=== PATIENT | female | born 1940 | race Caucasian/White ===

== ENCOUNTER → 2019-08-17 10:09 | Outpatient (BNVA) | payer MEDICARE, SELFPAY | PROVIDERS: Family Provider Nurse Practitioner Family; Visit Provider Nurse Practitioner Family | DX: H65.93 Unspecified nonsuppurative otitis media, bilateral (principal); R42 Dizziness and giddiness; E78.2 Mixed hyperlipidemia; E55.9 Vitamin D deficiency, unspecified; Z79.899 Other long term (current) drug therapy | CPT/HCPCS: 36415; 80053; 80061; 81001; 83036; 84443; 85025 ==

== ENCOUNTER 2019-11-20 20:00 | Emergency (ER) | payer MEDICARE, SELFPAY ==
[2019-11-20] VITALS (9 sets, daily range): BP systolic 121–167; BP diastolic 72–98; PULSE 68–72; RESP 16–20; TEMP 37; O2SAT 89–100; BMI 25.7
--- NOTE | 2019-11-20 20:31 | CTR_ITS ---
PROCEDURE INFORMATION: Exam: CT Cervical Spine Without Contrast Exam date and time: 11/20/2019 8:50 PM Age: 79 years old Clinical indication: Injury or trauma; Initial encounter; Blunt trauma; Patient HX: Fall while walking C/O neck upper back/chest pain TECHNIQUE: Imaging protocol: Computed tomography images of the cervical spine without contrast. Radiation optimization: All CT scans at this facility use at least one of these dose optimization techniques: automated exposure control; mA and/or kV adjustment per patient size (includes targeted exams where dose is matched to clinical indication); or iterative reconstruction. ADDITIONAL STUDY INFORMATION: Total DLP (mGy-cm): 337.6 COMPARISON: No relevant prior studies available. FINDINGS: There is mild multilevel malalignment, likely secondary to degenerative changes. Height of cervical bodies appears within normal limits. Straightening of the cervical spine may be due to muscle spasm. There are prominent multilevel degenerative changes in the cervical spine. There appears to be spinal canal narrowing. Further assessment cannot be made of the cervical spinal canal or its contents due to artifacts. No convincing acute fracure is demonstrated when allowing for the degenerative changes. Consider MRI of cervical spine for further assessment if clinically warranted, particularly for further assessment of the spinal canal and its contents, spinal cord, nerve roots, intervertebral disks, ligaments, other spinal soft tissues, bone edema, etc., if patient has no contraindication to MRI. There are prominent calcifications at each CCA bifurcation, consider further imaging to assess for carotid stenosis. CT/CT cervical spin wo con* [id number] IMPRESSION: No convincing acute fracture is demonstrated when allowing for prominent degenerative changes as discussed above. Radiation Dose CTDIVOL = (mGy): DLP = 337.6 (mGy-cm)
--- NOTE | 2019-11-20 20:31 | CTR_ITS ---
PROCEDURE INFORMATION: Exam: CT Head Without Contrast Exam date and time: 11/20/2019 8:32 PM Age: 79 years old Clinical indication: Injury or trauma; Initial encounter; Blunt trauma (contusions or hematomas); Without loss of consciousness; Patient HX: Fall while walking -loc TECHNIQUE: Imaging protocol: Computed tomography of the head without contrast. Radiation optimization: All CT scans at this facility use at least one of these dose optimization techniques: automated exposure control; mA and/or kV adjustment per patient size (includes targeted exams where dose is matched to clinical indication); or iterative reconstruction. ADDITIONAL STUDY INFORMATION: Total DLP (mGy-cm): 849.12 COMPARISON: [place] [id number] 10/24/2017 8:37 AM FINDINGS: There are some artifacts from patient motion. There is moderate low density in the bilateral periventricular white matter which may represent chronic small vessel ischemic disease in the appropriate clinical setting. The possibility of superimposed acute infarctions cannot be excluded; consider MRI brain (including diffusion images) for further assessment if clinically warranted and if patient has no contraindication to MRI. There are prominent intracranial arterial calcifications. There is mild cerebral cortical volume loss. Ventricles do not appear significantly dilated. No definite depressed calvarial fracture is demonstrated. Visualized paranasal sinuses and mastoid air cells demonstrate no significant opacification. CT/CT head wo con* [id number] IMPRESSION: Probable chronic ischemic changes as discussed above. Radiation Dose CTDIVOL = (mGy): DLP = 849.12 (mGy-cm)
--- NOTE | 2019-11-20 20:31 | CTR_ITS ---
PROCEDURE INFORMATION: Exam: CT Chest Without Contrast Exam date and time: 11/20/2019 8:50 PM Age: 79 years old Clinical indication: Injury or trauma; Initial encounter; Blunt trauma (contusions or hematomas); Prior surgery; Surgery date: 6+ months; Surgery type: Pacer; Patient HX: Fall while walking C/O neck upper back/chest pain TECHNIQUE: Imaging protocol: Computed tomography of the chest without contrast. Radiation optimization: All CT scans at this facility use at least one of these dose optimization techniques: automated exposure control; mA and/or kV adjustment per patient size (includes targeted exams where dose is matched to clinical indication); or iterative reconstruction. COMPARISON: No relevant prior studies available. RADIATION DOSE METRICS: Total DLP (mGy-cm): 423.2 FINDINGS: Tubes, catheters and devices: Dual lead left subclavian pacemaker. Lungs: Centrilobular emphysema. Calcified granulomas with scarring in the right upper lobe. Atelectasis and/or fibrosis in the bilateral lower lobes and lingula. Pleural space: Unremarkable. No pneumothorax. No pleural effusion. Heart: Coronary artery calcifications. Aorta: Unremarkable. No aortic aneurysm. Lymph nodes: Mediastinal lymph nodes measuring up to 9 mm short axis are most likely reactive. Calcified right hilar lymph nodes. Liver: Calcified granulomas in the liver. Spleen: Calcified granulomas in the spleen. Bones/joints: Old right lateral rib fractures. Mild anterior wedging of T1. Oblique displaced fracture through the superior body of the sternum, best appreciated on the sagittal reformats. Small amount of hemorrhage in the anterior mediastinum, adjacent to the sternum fracture. Mild scoliosis. Soft tissues: Unremarkable. CT/CT chest con [id number] IMPRESSION: 1. Displaced sternum fracture with a small amount of adjacent hemorrhage. 2. Mild anterior wedge compression fracture of T1 is age indeterminate but could be acute. Radiation Dose CTDIVOL = (mGy): DLP = 423.2 (mGy-cm)
[2019-11-20] MEDS: HYDROmorphone 1 mg/mL INJ 1 mL 0.5 MG IVP ×2 (20:40→23:58)
--- NOTE | 2019-11-20 21:43 | W.ED.FALL ---
HPI - Fall General: Chief Complaint: Fall Stated Complaint: FALL Time Seen by Provider: 11/20/19 20:10 History of Present Illness: HPI Narrative: 79-year-old female, with a history of dementia, who tripped over a toolbox on the porch, falling. She complains of headache, neck pain, and right sided upper chest pain. By family's report, she did not lose consciousness. MD complaint: fall Onset (ago): minute(s) Fall from: standing Fall witnessed: yes, by family Place fall occurred: home Loss of consciousness: None Prolonged down time: no Symptoms prior to fall: none Context: tripped/slipped Location of injury: head, neck and chest Review of Systems General: Reports: ROS unobtainable due to medical condition (Patient has dementia, and is therefore a poor historian) PFS ED PFSH: Medical History (Updated 11/20/19 @ 23:39 by Law Odom DO) Alzheimer disease Anticoagulated Arteriosclerosis of both carotid arteries ASHD (arteriosclerotic heart disease) Chronic episodic atrial fibrillation Chronic idiopathic constipation COPD (chronic obstructive pulmonary disease) Dizziness Dysphagia Essential hypertension Fluid level behind tympanic membrane of both ears H/O adenomatous polyp of colon Mixed hyperlipidemia Pacemaker SVT (supraventricular tachycardia) Vitamin D deficiency Family History Other CAD (coronary artery disease) Cancer Diabetes Hypertension Social History Smoking and tobacco status: current every day smoker Quit status (tobacco): not considering quitting Second hand smoke exposure: Yes Smoking risk assessment/counseling performed?: No Alcohol intake: never Desire information about alcohol rehabilitation?: Yes Counseling given: Yes Desire information about substance/drug rehabilitation?: No Counseling given: No Physical Exam Const: GENERAL APPEARANCE: well developed ORIENTATION/CONSCIOUSNESS: Yes oriented to person, Yes oriented to place and Yes oriented to time HENMT: COMMON NORMALS: normocephalic, external ears normal and Normal external nose present HEAD & SCALP: normocephalic FACE & SINUS: normal facial exam NOSE: Normal external nose present and No nasal discharge present EXTERNAL EAR: Yes external ears normal MOUTH: tongue normal THROAT: posterior oropharynx normal; no peritonsillar mass Eye: COMMON NORMALS: Equal, round and reactive pupils present, EOMs intact bilaterally and conjunctivae normal EYELID: eyelids normal CONJUNCTIVA: Yes conjunctivae normal PUPIL: Yes Equal, round and reactive pupils present Neck/C-Spine: GENERAL: No tracheal deviation CERVICAL SPINE: Yes normal cervical lordosis and Yes Cervical spine tenderness Chest: COMMONS NORMALS: normal inspection of the chest CHEST: Yes tenderness Resp: COMMON NORMALS: clear to auscultation bilaterally EFFORT & INSPECTION: No tachypneic, No respiratory distress, No retractions, No uses accessory muscles and No tracheal deviation AUSCULTATION: clear to auscultation bilaterally, no rhonchi, no wheezes and lung sounds not diminished Cardio: COMMON NORMALS: regular rate and regular rhythm RATE: regular rate RHYTHM: regular rhythm HEART SOUNDS: no murmurs PERIPHERAL PULSES: radial pulses present GI: INSPECTION: No abdominal distension AUSCULTATION: No Hyperactive bowel sounds present and No Hypoactive bowel sounds present PALPATION: No Guarding due to palpation present (GI) and No Rigid due to palpation PERCUSSION: no dullness to percussion and no tympanic to percussion Neuro: SENSORIUM/ORIENTATION: Yes oriented to person, Yes oriented to place and Yes oriented to time Psych: COMMON NORMALS: mental status grossly normal Skin: COMMON NORMALS: no rashes or lesions noted GENERAL SKIN EXAM: no rashes or lesions noted Course Vital Signs: Vital signs: Vital Signs Temperature 98.6 F 11/20/19 20:05 Pulse Rate 72 11/20/19 23:09 Respiratory Rate 18 11/21/19 01:55 Blood Pressure 123/74 11/21/19 01:55 Pulse Oximetry 89 L 11/21/19 00:00 MDM - Fall MDM Narrative: Medical decision making narrative: 79-year-old female status post standing level fall. She complained of headache neck ache and upper chest pain. She has CTs that are negative of the head and cervical spine. CT of the chest shows an isolated mildly displaced sternal fracture. There is no associated pulmonary contusion. There is a small amount of hemorrhage. Her oxygen saturations have been okay. She has not had any respiratory distress. She has some splinting, and she was coached not to do this. She will go home on incentive spirometry to return for any worsening shortness of breath, etc. Discharge Plan Discharge Patient Disposition: Home Clinical Impression: Concussion without loss of consciousness Qualifiers: Encounter type: initial encounter Qualified Code(s): S06.0X0A - Concussion without loss of consciousness, initial encounter Closed fracture of sternum Qualifiers: Encounter type: initial encounter Sternal location: body of sternum Qualified Code(s): S22.22XA - Fracture of body of sternum, initial encounter for closed fracture Condition: Stable Prescriptions: New Ethel 5-325 mg tablet 1 tab PO Q6H PRN (Reason: pain) Qty: 7 RF: 0 No Action loratadine [Claritin] 10 mg tablet 10 mg PO DAILY RF: 0 isosorbide mononitrate 30 mg tablet extended release 24 hr 30 mg PO DAILY RF: 0 memantine [Namenda] 10 mg tablet 10 mg PO BID RF: 0 sennosides-docusate sodium [Lax Stool Softener With Senna] 8.6-50 mg tablet 1 tab-cap PO BID RF: 0 polyethylene glycol 3350 [Miralax] 17 gram/dose powder 17 gm PO DAILY RF: 0 Linzess 145 mcg capsule 145 mcg PO DAILY 30 Days Qty: 30 RF: 0 fluticasone propionate [Flonase Allergy Relief] 50 mcg/actuation spray,suspension 1 spray INTRANASAL DAILY PRN (Reason: allergy symptoms) 30 Days Qty: 16 RF: 2 flecainide 100 mg tablet 100 mg PO Q12H Qty: 180 RF: 1 Pradaxa 150 mg capsule 150 mg PO BID Qty: 180 RF: 1 citalopram 40 mg tablet 40 mg PO QDAY Qty: 30 RF: 5 pantoprazole 40 mg tablet,delayed release (DR/EC) 40 mg PO DAILY Qty: 30 RF: 2 simvastatin 40 mg tablet 40 mg PO DAILY Qty: 90 RF: 1 Discharge Orders: Discharge Order (Routine); Ordered 11/20/19 Ordered By: Law Odom Referrals: DIPAK Johnson, [employer] REPAIR TECHNICIAN [Primary Care Provider] - 4-7 days Discharge Diet: Advance as tolerated Discharge Activity: Increase activity as tolerated Patient Instructions: Concussion (ED) Activity Restrictions/Additional Instructions: Return for worsening pain despite treatment, shortness of breath, worsening mental status, vomiting, other concerning symptoms. Sternal fractures are high-energy fractures, and you are at risk to develop lung bruises which can make her short of breath. Watch closely for this. Discharge Date/Time: 11/21/19 01:57 Coding Level of Care Code ED Computer Bookkeeper for Chg Fwd Exam Comprehensive
[2019-11-21] VITALS: BP 111/76; RESP 20; O2SAT 89
[2019-11-21] MEDS: HYDROcodone-acetaminophen 5-325 mg Tablet 2 TAB PO (01:40)
[2019-11-21 01:55] VITALS: BP 123/74; RESP 18
== END 2019-11-21 01:57 | disposition home or self-care (01) ==
PROVIDERS: Emergency Provider Emergency Medicine; PCP Nurse Practitioner Family
DX: S06.0X0A Concussion without loss of consciousness, initial encounter (principal); S22.22XA Fracture of body of sternum, initial encounter for closed fracture; J44.9 Chronic obstructive pulmonary disease, unspecified; I10 Essential (primary) hypertension; E78.2 Mixed hyperlipidemia; Z95.0 Presence of cardiac pacemaker; F17.210 Nicotine dependence, cigarettes, uncomplicated; F03.90 Unspecified dementia, unspecified severity, without behavioral disturbance, psychotic disturbance, mood disturbance, and anxiety; W18.09XA Striking against other object with subsequent fall, initial encounter
CPT/HCPCS: 12345; 70450; 71250; 72125; 96374; 96376; 99283; J1170

== ENCOUNTER 2021-04-05 13:31 | Inpatient (IN) | payer MEDICARE, SELFPAY ==
[2021-04-05] VITALS (7 sets, daily range): BP systolic 99–170; BP diastolic 66–90; PULSE 60–82; RESP 16–20; TEMP 36.4–36.8; O2SAT 91–96; BMI 22.4
--- NOTE | 2021-04-05 14:27 | XR_ITS ---
WS: [id number] XR chest 1V portable [id number] REASON FOR EXAM: sob FINDINGS: Chest is relatively unchanged compared to previous examination of 08/05/2018. Tortuous ectatic thoracic aorta with calcification. Normal heart size. Cardiac device in place over the left chest with transvenous left subclavian vein leads to the right atrium and right ventricular apex. Eventration of the right hemidiaphragm. Calcified granulomatous disease in both thoraces. No acute pulmonary parenchymal or pleural abnormality. Mild degenerative changes in the mid and lower thoracic spine and both shoulder joints. XR/XR chest 1V portable [id number] IMPRESSION: No acute chest abnormality.
--- NOTE | 2021-04-05 14:28 | W.ED.GENADLT ---
HPI - General Adult General: Chief complaint: General Medical Stated complaint: Possible Covid, Alzheimers Time Seen by Provider: 04/05/21 14:28 Limitations: altered mental status History of Present Illness: Ms. Bustillo is an 80-year-old lady with significant past medical history of dementia who presents the emergency department with cough and altered mental status. She typically lives with her daughter at home and even though she has dementia is communicative and ambulatory. She developed mild shortness of breath cough over the past week or so and over the past 4 days has had worsening of mental status. Intensity of symptoms is moderate to severe. She has had generalized weakness without focality. Course has been worsening. No other specific changes in health, trauma, exacerbating, or relieving factors identified. Onset (ago): day(s) Severity: moderate Associated symptoms: Reports cough, dyspnea and weakness Review of Systems General: Reports: ROS unobtainable due to mental status Resp: Reports: dyspnea PFSH ED PFSH: Medical History (Updated 04/07/21 @ 00:01 by ) Alzheimer disease Anticoagulated Arteriosclerosis of both carotid arteries ASHD (arteriosclerotic heart disease) Carotid stenosis Chronic episodic atrial fibrillation Chronic idiopathic constipation COPD (chronic obstructive pulmonary disease) Dizziness Dysphagia Essential hypertension Fluid level behind tympanic membrane of both ears H/O adenomatous polyp of colon Mixed hyperlipidemia Pacemaker SVT (supraventricular tachycardia) Vitamin D deficiency Surgical History (Updated 04/05/21 @ 18:19 by Reggie Cortez MD) Hx of cataract extraction Family History Mother Cancer Brother Cancer Sister Cancer Dementia Other Hypertension Denies family history of Diabetes CAD (coronary artery disease) Clotting disorder Chronic kidney disease (CKD) Suicide Anesthesia complication Bleeding disorder Lung disease Stroke Social History Smoking and tobacco status: current every day smoker Quit status (tobacco): not considering quitting Second hand smoke exposure: Yes Smoking risk assessment/counseling performed?: No Alcohol intake: never Desire information about alcohol rehabilitation?: Yes Counseling given: Yes Desire information about substance/drug rehabilitation?: No Counseling given: No Physical Exam Const: GENERAL APPEARANCE: well developed and ill appearing OTHER: Somnolent HENMT: COMMON NORMALS: normocephalic and atraumatic HEAD & SCALP: normocephalic and atraumatic THROAT: posterior oropharynx normal (Dry mucous membranes) Eye: COMMON NORMALS: conjunctivae normal CONJUNCTIVA: Yes conjunctivae normal SCLERA: sclerae normal Neck/C-Spine: COMMON NORMALS: supple GENERAL: Yes trachea midline Resp: COMMON NORMALS: normal respiratory effort EFFORT & INSPECTION: Yes able to speak in complete sentences AUSCULTATION: rhonchi lower bilaterally and diminished lung sounds Cardio: COMMON NORMALS: regular rate and regular rhythm RATE: regular rate RHYTHM: regular rhythm GI: COMMON NORMALS: Soft to palpation PALPATION: Yes Soft to palpation, Yes Tenderness to palpation present (GI) (Mild generalized without peritonitis), No Guarding due to palpation present (GI) and No Rigid due to palpation PERCUSSION: normal to percussion Extremity: GENERAL: Yes normal exam except as noted and No edema Neuro: COMMON NORMALS: moves all extremities SENSORIUM/ORIENTATION: Yes Orientation impaired and Yes somnolent Skin: NARRATIVE SKIN EXAM: Scattered pinpoint violaceous markings around the groin area and axilla, not consistent with cellulitis or fungal, ?Petechial versus follicular in nature Course ED course: - Patient was seen and evaluated by me at bedside - Patient placed on cardiac monitors, IV access obtained - Initial evaluation notable for exam above, somewhat ill -Fluids ordered - Labs notable for no leukocytosis, mild thrombocytopenia of unclear etiology. Metabolic panel without acute electrolyte derangement to explain symptoms. ABG 7.47/41.6/52.5 at which point the patient was placed on supplemental oxygen. Covid positive - Imaging notable for negative head CT for acute pathology. No acute finding on chest x-ray. - Upon serial reexamination after treatment the patient was similar. - Based on patient history, evaluation, labs, and imaging as interpreted the most likely cause of the patient's condition is COVID-19 with hypoxemia and generalized symptoms. - The results of ED evaluation were discussed with the patient's daughter extensively including possible disposition options. At baseline the patient does have dementia however is able to ambulate and daughter reports good quality of life. Therefore plan is for admission due to requirement for level of care not available if discharged to prevent significant worsening/deterioration. -Hospitalist service contacted and agreed to admit the patient - Patient was admitted without further deterioration or significant events. Note: Click bubbles or prepopulated portillo in note writing are used for assistance with data collection and billing and are inherently more limited than narrative and other text portions of this note. Please use narrative for additional clinical history and defer to narrative/free test for any case of contradictory information. If information appears in only free text or click bubble it should be considered present or absent as reported. Please contact note senior medical writer for clarifications of clinical information or contradictory information. MDM is a brief summary, contradictory or erroneous seeming information should be clarified and full note should be reviewed. Vital Signs: Vital signs: Vital Signs Temperature 98.7 F 04/06/21 19:01 Pulse Rate 67 04/06/21 19:01 Respiratory Rate 18 04/06/21 19:01 Blood Pressure 122/68 04/06/21 19:01 Pulse Oximetry 94 04/06/21 19:01 MDM - General Adult Medical Decision Making 81-year-old lady with dementia though typically ambulatory and able to care for self with assistance residing with family presenting with cough, shortness of breath, weakness and somnolence. Patient found to be Covid positive. Will admit for further management given new oxygen requirement and severe decline in functional status likely secondary to Covid. Medical Records I reviewed the patient's medical records. Lab Data I reviewed the patient's lab results. : 04/06/21 03:00 04/06/21 03:[address] 04/05/21 14:50 IMPRESSION: 1. No acute intracranial hemorrhage or edema. 2. Mild atrophy and chronic microvascular ischemic disease. No acute findings. Chest X-Ray 04/06/21 18:15 IMPRESSION: Mild patchy opacity at the lateral left base may reflect atelectasis or developing infiltrate. Laboratory Results WBC 5.3 10^3/uL (4.0-10.0) 04/05/21 14:50 RBC 4.17 10^6/uL (4.1-5.3) 04/05/21 14:50 Hgb 12.5 g/dL (11.5-15.3) 04/05/21 14:50 Hct 38.1 % (37.0-47.0) 04/05/21 14:50 MCV 91.4 fl (81-99) 04/05/21 14:50 MCH 30.0 pg (28.0-34.0) 04/05/21 14:50 MCHC 32.8 g/dL (30.0-36.0) 04/05/21 14:50 RDW 12.9 % (12.1-15.1) 04/05/21 14:50 Plt Count 118 10^3/cmm (130-400) L 04/05/21 14:50 MPV 11.2 fL (7.4-10.4) H 04/05/21 14:50 Neut % (Auto) 51.9 % 04/05/21 14:50 Lymph % (Auto) 39.0 % 04/05/21 14:50 Coffey % (Auto) 8.1 % 04/05/21 14:50 Eos % (Auto) 0.4 % 04/05/21 14:50 Baso % (Auto) 0.2 % 04/05/21 14:50 Neut # (Auto) 2.76 10^3/uL (1.8-7.7) 04/05/21 14:50 Lymph # (Auto) 2.1 10^3/uL (0.8-4.8) 04/05/21 14:50 Coffey # (Auto) 0.4 10^3/uL (0.2-0.9) 04/05/21 14:50 Eos # (Auto) 0.0 10^3/uL (0.0-0.8) 04/05/21 14:50 Baso # (Auto) 0.0 10^3/uL (0.0-0.1) 04/05/21 14:50 Nucleated RBC % (auto) 0 % 04/05/21 14:50 Nucleated RBCs # 0.0 /100WBC 04/05/21 14:50 D-Dimer 11.07 ug/mIFEU (0-0.59) H 04/05/21 18:13 Sodium 139 mmol/L (136-145) 04/05/21 14:50 Potassium 3.8 mmol/L (3.5-5.1) 04/05/21 14:50 Chloride 102 mmol/L (98-107) 04/05/21 14:50 Carbon Dioxide 27 mmol/L (22-29) 04/05/21 14:50 Anion Gap 13.8 (5-19) 04/05/21 14:50 BUN 19 mg/dL (8-23) 04/05/21 14:50 Creatinine 0.6 mg/dL (0.5-0.9) 04/05/21 14:50 GFR Calculation Not Reportable 04/05/21 14:50 Glucose 97 mg/dL (65-115) 04/05/21 14:50 POC Glucose 103 mg/dL (70-110) 04/05/21 15:37 Calculated Osmolality 290 mOsm/kg (285-295) 04/05/21 14:50 Calcium 9.2 mg/dL (8.5-10.5) 04/05/21 14:50 Iron 34 ug/dL (37-145) L 04/05/21 14:50 TIBC 226 mcg/dl 04/05/21 14:50 % Saturation 15.0 % (20-50) L 04/05/21 14:50 Unsat Iron Binding 192 ug/dL (112-347) 04/05/21 14:50 Total Bilirubin 0.5 mg/dL (0.15-1.2) 04/05/21 14:50 AST 22 U/L (0-32) 04/05/21 14:50 ALT 13 U/L (0-33) 04/05/21 14:50 Alkaline Phosphatase 75 IU/L (35-105) 04/05/21 14:50 Lactate Dehydrogenase 284 U/L (135-214) H 04/05/21 14:50 Creatine Kinase 86 U/L (26-192) 04/05/21 14:50 Troponin T Baseline 65 ng/L (0-10) H 04/05/21 14:50 Troponin T 120 Minute 56.62 ng/L (0-10) H 04/05/21 16:21 Delta Troponin T -8.38 ABS# (0-10) L 04/05/21 16:21 C-Reactive Protein 3.0 mg/L (0.0-4.9) 04/05/21 14:50 NT-Pro-B Natriuret Pep 267 pg/mL (0-450) 04/05/21 14:50 Total Protein 6.7 g/dL (6.6-8.7) 04/05/21 14:50 Albumin 3.6 g/dL (3.5-5.2) 04/05/21 14:50 Globulin 3.1 g/dL (1.3-4.6) 04/05/21 14:50 Procalcitonin 0.04 ng/mL (0-0.5) 04/05/21 14:50 TSH 1.99 uIU/mL (0.27-4.20) 04/05/21 14:50 Urine Color Yellow (Yellow) 04/05/21 15:44 Urine Appearance Clear (CLEAR) 04/05/21 15:44 Urine pH 5 (5-7) 04/05/21 15:44 Ur Specific [place] 1.015 (1.005-1.030) 04/05/21 15:44 Urine Protein Neg (Negative) 04/05/21 15:44 Urine Glucose (UA) Norm (Normal) 04/05/21 15:44 Urine Ketones Negative (Negative) 04/05/21 15:44 Urine Blood Neg (Negative) 04/05/21 15:44 Urine Nitrate Negative (Negative) 04/05/21 15:44 Urine Bilirubin Neg (Negative) 04/05/21 15:44 Urine Urobilinogen 1 mg/dL (Negative) H 04/05/21 15:44 Ur Leukocyte Esterase Negative (Negative) 04/05/21 15:44 Ur Random Sodium 50 mmol/L 04/05/21 15:44 Ur Random Potassium 57 mmol/L 04/05/21 15:44 Ur Random Chloride 57 mmol/L 04/05/21 15:44 Coronavirus 229E (PCR) Not detected (NOT DETECT) 04/05/21 15:40 Influenza Type A Ag Negative (Negative) 04/05/21 15:33 Influenza Type B Ag Negative (Negative) 04/05/21 15:33 SARS-CoV-2 (PCR) Detected (NOT DETECT) A 04/05/21 15:40 EKG Data EKG 1: I personally reviewed and interpreted this EKG as follows: EKG interpretation date: 04/05/21 EKG interpretation time: 15:39 Interpretation: Twelve-lead EKG shows a regular rhythm at a rate of 65. TX interval 139, QRS 94, QTc 376. Left axis deviation. Interpretation: Sinus rhythm. Computer generated interpretation: Head CT 04/05/21 14:50 IMPRESSION: 1. No acute intracranial hemorrhage or edema. 2. Mild atrophy and chronic microvascular ischemic disease. No acute findings. Chest X-Ray 04/06/21 18:15 IMPRESSION: Mild patchy opacity at the lateral left base may reflect atelectasis or developing infiltrate. Discharge Plan Discharge Patient Disposition: Admitted As Inpatient Admit Provider: Cindy Rain Clinical Impression: COVID-19, Hypoxemia Condition: Stable Discharge Diet: Usual diet Discharge Activity: Resume usual activity and Increase activity as tolerated Coding Level of Care Code ED Pipe Stem Repairer for Chg Fwd Exam Comprehensive
--- NOTE | 2021-04-05 14:30 | ECG_ITS ---
[facility] Test Date: 2021-04-05 Pat Name: Eli Bustillo Department: Room: Gender: Female Java Lead: : 1940 Requested By: Jace Rojas Order Number: [id number] Husam MD: ETHAN MOLINA Measurements Intervals [place] Rate: 65 P: 48 [place]: 139 QRS: -49 QRSD: 94 T: 87 QT: 364 QTc: 381 Interpretive Statements SINUS RHYTHM WITH SINUS ARRHYTHMIA PATTERN CONSISTENT WITH PULMONARY DISEASE LEFT ANTERIOR FASCICULAR BLOCK [QRS AXIS <= -45, QR IN I, RS IN II] NONSPECIFIC T-WAVE ABNORMALITY Compared to ECG 08/05/2018 15:36:05 T-wave abnormality now present Atrial-paced complex(es) or rhythm no longer present Prolonged QT interval no longer present Electronically Signed On 04-05-2021 21:47:30 AUTO CLEANER by ETHAN MOLINA [id number]
--- NOTE | 2021-04-05 14:50 | CT_ITS ---
WS: [id number] CT HEAD NONCONTRAST HISTORY: AMS TECHNIQUE: Contiguous axial imaging performed through the brain in 2.5 mm imaging. Bone and soft tiss ue windows. Sagittal and coronal reformats reviewed. All CT scans at [facility] use at least one of these dose optimization techniques: automated exposure control; mA and/or kV adjustment per pa tient size (includes targeted exams where dose is matched to clinical indication); or iterative recon struction. DLP: 1713.96 mGy.cm COMPARISON: 11/20/2019 No acute intracranial hemorrhage, midline shift or mass effect. Mild atrophy. Mild chronic microvascular ischemic type changes in the white matter. Ventricles: Ventricles and extra-axial spaces are prominent on the basis of central and peripheral a trophy. Paranasal sinuses: As visualized are clear. Mastoid air cells: Well pneumatized. Calvarium and scalp: Skull is intact with no soft tissue edema or swelling. Moderate calcifications in the intracranial carotid arteries. CT/CT head wo con* [id number] IMPRESSION: 1. No acute intracranial hemorrhage or edema. 2. Mild atrophy and chronic microvascular ischemic disease. No acute findings.
[2021-04-05 15:04] LABS: Basophils % 0.2 %; Eosinophils % 0.4 %; Hematocrit 38.1 % (37.0-47.0); Hemoglobin 12.5 g/dL (11.5-15.3); Lymphocytes # 2.1 10^3/uL (0.8-4.8); Mean Corpuscular HGB Conc 32.8 g/dL (30.0-36.0); Mean Corpuscular Volume 91.4 fl (81-99); Mean Platelet Volume 11.2 fL (7.4-10.4); Monocytes # 0.4 10^3/uL (0.2-0.9); Monocytes % 8.1 %; Neutrophils # 2.76 10^3/uL (1.8-7.7); Neutrophils % 51.9 %; Nucleated Red Blood Cells % 0 %; Platelet Count 118 10^3/cmm (130-400); Red Blood Count 4.17 10^6/uL (4.1-5.3); Red Cell Distribution Width 12.9 % (12.1-15.1); White Blood Count 5.3 10^3/uL (4.0-10.0)
[2021-04-05 15:28] LABS: Troponin(5th) Baseline 65 ng/L (0-10)
[2021-04-05 15:38] LABS: Alanine Aminotransferase 13 U/L (0-33); Albumin Level 3.6 g/dL (3.5-5.2); Alkaline Phosphatase 75 IU/L (35-105); Anion Gap 13.8 (5-19); Aspartate Amino Transferase 22 U/L (0-32); Blood Urea Nitrogen 19 mg/dL (8-23); Calcium 9.2 mg/dL (8.5-10.5); Carbon Dioxide 27 mmol/L (22-29); Chloride 102 mmol/L (98-107); Creatinine Clr Calc Pharmacy 50.2364; Globulin 3.1 g/dL (1.3-4.6); Glucose 97 mg/dL (65-115); Osmolality Calculated 290 mOsm/kg (285-295); Potassium 3.8 mmol/L (3.5-5.1); Procalcitonin 0.04 ng/mL (0-0.5); Sodium 139 mmol/L (136-145); Thyroid Stimulating Hormone 1.99 uIU/mL (0.27-4.20); Total Bilirubin 0.5 mg/dL (0.15-1.2); Total Protein 6.7 g/dL (6.6-8.7)
[2021-04-05 15:41] LABS: Glucose Point of Care 103 mg/dL (70-110)
[2021-04-05 16:00] LABS: Add Urine Microscopic? NO; Charge for UA Resulting for Rev
[2021-04-05 16:13] LABS: Bilirubin Urine Neg (Negative); Blood Urine Neg (Negative); Glucose Urine UA Norm (Normal); Ketones Urine Negative (Negative); Leukocyte Esterase Urine Negative (Negative); Nitrate Urine Negative (Negative); Protein Urine Neg (Negative); Specific Gravity, Urine 1.015 (1.005-1.030); Urine Appearance Clear (CLEAR); Urine Color Yellow (Yellow); Urobilinogen Urine 1 mg/dL (Negative); pH Urine 5 (5-7)
--- NOTE | 2021-04-05 16:30 | ECG_ITS ---
[facility] Test Date: 2021-04-05 Pat Name: Eli Bustillo Department: Room: Gender: Female Software Engineer Sales: : 1940 Requested By: Jace Rojas Order Number: [id number] Husam MD: ETHAN MOLINA Measurements Intervals [place] Rate: 62 P: 60 TX: 124 QRS: -30 QRSD: 98 T: 77 QT: 375 QTc: 383 Interpretive Statements SINUS RHYTHM INCOMPLETE RIGHT BUNDLE BRANCH BLOCK [90+ ms QRS DURATION, TERMINAL R IN V1/V2, 40+ ms S IN I/aVL/V4/V5/V6] SEPTAL MYOCARDIAL INFARCTION , PROBABLY OLD [40+ ms Q WAVE IN V1/V2] Compared to ECG 04/05/2021 15:31:37 Incomplete right bundle-branch block now present Myocardial infarct finding now present Sinus arrhythmia no longer present Left anterior fascicular block no longer present T-wave abnormality no longer present Electronically Signed On 04-05-2021 21:48:51 CAMPGROUND CLEANING ATTENDANT by ETHAN MOLINA [id number]
[2021-04-05 16:58] LABS: Adenovirus Not Detected (NOT DETECT); Chlamydia Pneumoniae Not Detected (NOT DETECT); Coronavirus 229E,HKU1,NL63,OC4 Not Detected (NOT DETECT); Human Metapneumovirus Not Detected (NOT DETECT); Human Rhinovirus/Enterovirus Not Detected (NOT DETECT); Influenza A Not Detected (NOT DETECT); Influenza A H1 Not Detected (NOT DETECT); Influenza A H1-2009 Not Detected (NOT DETECT); Influenza A H3 Not Detected (NOT DETECT); Influenza B Not Detected (NOT DETECT); Mycoplasma Pneumoniae Not Detected (NOT DETECT); Parainfluenza Virus Type 1 Not Detected (NOT DETECT); Parainfluenza Virus Type 2 Not Detected (NOT DETECT); Parainfluenza Virus Type 3 Not Detected (NOT DETECT); Parainfluenza Virus Type 4 Not Detected (NOT DETECT); Respiratory Syncytial Virus A Not Detected (NOT DETECT); Respiratory Syncytial Virus B Not Detected (NOT DETECT); SARS-COV-2 Detected (NOT DETECT)
[2021-04-05 17:01] LABS: Troponin 5 2HR 56.62 ng/L (0-10)
[2021-04-05 17:08] LABS: Troponin 5 2HR Delta -8.38 ABS# (0-10)
[2021-04-05 17:38] LABS: Influenza A by IFA Negative (Negative); Influenza B by IFA Negative (Negative)
[2021-04-05] MEDS: sodium chloride 0.9% 500 ML 999 ML IV (17:52)
--- NOTE | 2021-04-05 18:12 | PM.HP ---
Providers/Chief Complaint Primary Care Provider: TAHIRA Garcia Chief Complaint: Possible Covid, Alzheimers History of Present Illness History taken by son over the phone. Eli Bustillo is a 80 year old female with PMH of advanced dementia, HTN, chronic afib on pradaxa, HLD, COPD, CAD presented to ER with daughter in law because of increased weakness and lethargy which has been increasing for last 4 to 5 days. As per the son she was exposed to Covid by one of her grandson in last 1 week and she started feeling worse for last 4 days. She has not experienced any difficulty in breathing. Patient at baseline is extremely confused and has been getting worse over last 2 years. Blood work in the ER showed a white count 5.3, hemoglobin of 12.5, sodium 139, creatinine of 0.6, AST/ALT of 22/13, baseline troponin of 65, TSH of 1.99, pro-Dao of 0.04, UA negative for any sign of infection. Chest x-ray was done. On admission patient was requiring 2 L of oxygen supplementation to maintain saturation at 97. Patient was confused, in no acute distress and hemodynamically stable. Review of Systems General: Reports: ROS unobtainable due to medical condition and ROS unobtainable due to mental status Medications/Allergies Home Medications Medication Instructions Recorded Confirmed Last Taken Type loratadine 10 mg tablet (Claritin) 10 mg PO DAILY 06/11/19 04/05/21 Unknown History memantine 10 mg tablet (Namenda) 10 mg PO BID 06/11/19 04/05/21 Unknown History polyethylene glycol 3350 17 17 gm PO DAILY 06/11/19 04/05/21 Unknown History gram/dose oral powder (Miralax) sennosides 8.6 mg-docusate sodium 1 tab-cap PO BID tab 06/11/19 04/05/21 Unknown History 50 mg tablet (Laxative Stool Softener With Senna) simvastatin 40 mg tablet 40 mg PO DAILY #90 tab 09/01/19 04/05/21 Unknown Rx dabigatran etexilate 150 mg 150 mg PO BID #180 cap 07/31/20 04/05/21 Unknown Rx capsule (Pradaxa) furosemide 20 mg tablet 20 mg PO DAILY tab 01/31/21 04/05/21 Unknown History ascorbic acid 1,000 1 ea PO DAILY 04/05/21 04/05/21 Unknown History kn-lkcweqzmhruw-aeuyvsea powder effervescent pack (Emergen-C) citalopram 40 mg tablet 40 mg PO DAILY 04/05/21 04/05/21 Unknown History Allergies Allergy/AdvReac Type Severity Reaction Status Date / Time Penicillins Allergy unknown Verified 04/05/21 13:44 Sulfa (Sulfonamide Allergy unknown Verified 04/05/21 13:44 Antibiotics) vancomycin Allergy hives Verified 04/05/21 13:44 PFSH Acute PFSH: Medical History (Updated 04/05/21 @ 18:10 by Jace Rojas MD) Alzheimer disease Anticoagulated Arteriosclerosis of both carotid arteries ASHD (arteriosclerotic heart disease) Carotid stenosis Chronic episodic atrial fibrillation Chronic idiopathic constipation COPD (chronic obstructive pulmonary disease) Dizziness Dysphagia Essential hypertension Fluid level behind tympanic membrane of both ears H/O adenomatous polyp of colon Mixed hyperlipidemia Pacemaker SVT (supraventricular tachycardia) Vitamin D deficiency Surgical History (Updated 04/05/21 @ 18:19 by Reggie Cortez MD) Hx of cataract extraction Family History Mother Cancer Brother Cancer Sister Cancer Dementia Other Hypertension Denies family history of Diabetes CAD (coronary artery disease) Clotting disorder Chronic kidney disease (CKD) Suicide Anesthesia complication Bleeding disorder Lung disease Stroke Social History Smoking and tobacco status: current every day smoker Quit status (tobacco): not considering quitting Second hand smoke exposure: Yes Smoking risk assessment/counseling performed?: No Alcohol intake: never Desire information about alcohol rehabilitation?: Yes Counseling given: Yes Desire information about substance/drug rehabilitation?: No Counseling given: No Vitals/I&O/Wt Last Vital Signs Temp 98.2 F 04/05/21 13:39 Pulse 63 04/05/21 16:47 Resp 18 04/05/21 16:47 BP 136/82 04/05/21 16:47 Pulse Ox 94 04/05/21 16:47 Weight last 48 hrs Weight 61.235 kg Physical Exam Narrative: General: No acute distress,AAOx1, confused HEENT: PERRLA, pupils bilaterally equal and reactive Chest: Normal vesicular breath sounds, no added sounds, equal good air entry bilaterally CVS: S1-S2 irregulaly irregular, no murmurs, no tachycardia, no gallops, no rubs Abdomen: Soft, nontender, no organomegaly, bowel sounds present Neuro: No focal deficits, no facial deformity, AO x3, power 5/5 in all limbs Data : 04/06/21 03:00 04/06/21 03:00 Other Labs: Echocardiogram from 2017: CONCLUSIONS 1-Normal left ventricular cavity size. Normal left ventricular systolic function. No regional wall motion abnormalities. Left ventricular ejection fraction is estimated at 60 %. Grade I/IV diastolic dysfunction (abnormal relaxation filling pattern), normal to mildly elevated filling pressures. 2-Moderately thickened mitral valve. Moderate mitral annular calcification. No mitral valve stenosis. 3-There is no pericardial effusion. 4-Pulmonary artery systolic pressure is within normal limits. 5-Right atrial pressure is around 5 mm of mercury. 6-No significant change since the prior echocardiogram study of 05/13/2012. A&P Assessment and plan (1) Hypoxemia: Status: Acute (2) COVID-19: Status: Acute (3) Essential hypertension: Status: Acute (4) Chronic episodic atrial fibrillation: Status: Chronic (5) Pacemaker: Status: Acute Plan Hypoxia secondary to COVID-19 pneumonia: Mild to moderate disease. Oxygen supplementation keeping saturation over 88%. Dexamethasone 6 mg daily. Remdesivir to finish a 3-5 -day course depending on oxygen requirement. Vitamin C, zinc. DuoNeb every 6 hours for budesonide twice daily. Pulmonary toilet with incentive spirometry flutter valve. We will monitor inflammatory markers including ESR, CRP, D-dimer every 48 hours. If getting elevated will dose Actemra. Patient was made aware of the same and he has given verbal consent. D-dimer elevated. Check CTA. Will start on full dose anticoagulation as per the result of CTA. Will monitor for anemia or blood loss. Check sputum culture, procalcitonin, urine Legionella, bacterial antigen, blood culture. Procalcitonin negative. Low suspicion of bacterial infection for now. Start on Levaquin to finish a 5-day course. Given hypoxia will try to keep patient as negative as possible. Patient clinically dehydrated for now. For now continue with gentle hydration. Strict input output charting, daily weights. Continue other chronic medication. CODE STATUS: DNR/DNI. Mechanical soft diet. For now Heparin 5000 every 12 hourly for DVT prophylaxis. Attestations Medical Necessity Statement*: Admission for more than 2 midnights for management of hypoxia secondary COVID-19 pneumonia, advanced age, atrial fibrillation Time Spent in Patient Care: Greater than 35 minutes Coding Level of Care Code Acute Chief Of Staff Doctor for g Fwd Diagnoses Hypoxemia R09.02 COVID-19 U07.1 Essential hypertension I10 Chronic episodic atrial fibrillation I48.20 Pacemaker Z95.0
[2021-04-05] MEDS: dexamethasone 10 mg/mL INJ 6 MG IVP (19:13)
[2021-04-05] MEDS: ascorbic acid 500 mg Tablet PO (19:14)
[2021-04-05] MEDS: famotidine 20 mg/2 mL INJ IVP (19:14)
[2021-04-05 19:51] LABS: Potassium, Radom Urine 57 mmol/L; Urine Random Chloride 57 mmol/L; Urine Random Sodium 50 mmol/L
[2021-04-05 20:23] LABS: Iron 34 ug/dL (37-145); NT Pro B Type Natriuretic Pept 267 pg/mL (0-450); Total Iron Binding Capacity 226 mcg/dl; Unsaturated Iron Binding 192 ug/dL (112-347)
[2021-04-05 20:30] LABS: Creatine Phosphokinase 86 U/L (26-192)
[2021-04-05 20:59] LABS: Lactate Dehydrogenase 284 U/L (135-214)
[2021-04-05 21:16] LABS: D Dimer 11.07 ug/mIFEU (0-0.59)
[2021-04-05] MEDS: ipratropium-albuterol 3 mL Neb INHALATION (21:35)
[2021-04-05] MEDS: budesonide 0.5 mg/2 mL Neb INHALATION (21:35)
[2021-04-05 21:54] LABS: Troponin 5 6HR 59.51 ng/L (0-10)
[2021-04-05 21:55] LABS: Glucose Point of Care 118 mg/dL (70-110)
[2021-04-05 22:00] LABS: Troponin 5 6HR Delta -5.49 ng/L (0-12)
[2021-04-06] VITALS (10 sets, daily range): BP systolic 122–182; BP diastolic 68–96; PULSE 60–72; RESP 16–19; TEMP 36.4–37.1; O2SAT 92–97
[2021-04-06 03:11] LABS: Hematocrit 36.8 % (37.0-47.0); Hemoglobin 11.9 g/dL (11.5-15.3); Lymphocytes # 1.2 10^3/uL (0.8-4.8); Lymphocytes % 51.3 %; Mean Corpuscular HGB Conc 32.3 g/dL (30.0-36.0); Mean Corpuscular Hemoglobin 29.4 pg (28.0-34.0); Mean Corpuscular Volume 90.9 fl (81-99); Mean Platelet Volume 11.6 fL (7.4-10.4); Monocytes # 0.1 10^3/uL (0.2-0.9); Monocytes % 4.2 %; Neutrophils # 1.04 10^3/uL (1.8-7.7); Neutrophils % 44.1 %; Nucleated Red Blood Cells % 0 %; Platelet Count 108 10^3/cmm (130-400); Red Blood Count 4.05 10^6/uL (4.1-5.3); Red Cell Distribution Width 12.6 % (12.1-15.1); White Blood Count 2.4 10^3/uL (4.0-10.0)
[2021-04-06 03:23] LABS: D Dimer 0.57 ug/mIFEU (0-0.59)
[2021-04-06 03:32] LABS: Alanine Aminotransferase 12 U/L (0-33); Albumin Level 3.3 g/dL (3.5-5.2); Alkaline Phosphatase 74 IU/L (35-105); Anion Gap 11.8 (5-19); Aspartate Amino Transferase 20 U/L (0-32); Blood Urea Nitrogen 15 mg/dL (8-23); Calcium 8.9 mg/dL (8.5-10.5); Carbon Dioxide 24 mmol/L (22-29); Chloride 108 mmol/L (98-107); Creatinine Clr Calc Pharmacy 50.2364; Glucose 145 mg/dL (65-115); Osmolality Calculated 293 mOsm/kg (285-295); Potassium 3.8 mmol/L (3.5-5.1); Sodium 140 mmol/L (136-145); Total Bilirubin 0.5 mg/dL (0.15-1.2); Total Protein 6.3 g/dL (6.6-8.7)
[2021-04-06] MEDS: ipratropium-albuterol 3 mL Neb INHALATION ×2 (04:31→08:03)
[2021-04-06] MEDS: famotidine 20 mg/2 mL INJ IVP (06:10)
[2021-04-06] MEDS: budesonide 0.5 mg/2 mL Neb INHALATION (08:03)
[2021-04-06] MEDS: ferrous gluconate 324 mg Tablet PO ×2 (08:42→17:52)
[2021-04-06] MEDS: memantine 5 mg tablet 10 MG PO ×2 (08:42→17:52)
[2021-04-06] MEDS: atorvastatin 40 mg Tablet 20 MG PO (08:42)
[2021-04-06] MEDS: zinc gluconate 50 mg Tablet PO (08:43)
[2021-04-06] MEDS: citalopram 20 mg Tablet 40 MG PO (08:43)
[2021-04-06] MEDS: loratadine 10 mg Tablet PO (08:43)
[2021-04-06] MEDS: benzonatate 100 mg Capsule PO ×2 (08:43→14:54)
[2021-04-06] MEDS: ascorbic acid 500 mg Tablet PO ×2 (08:51→17:52)
--- NOTE | 2021-04-06 12:35 | PM.DCS ---
Discharge Providers Date of Admission: 04/05/21 20:46 Date of Discharge: April 06, 2021 Attending Provider at Admission: Cindy Rain MD Attending Provider at Discharge: Reggie Cortez MD Primary Care Provider: TAHIRA Garcia Diagnoses at Discharge Discharge Diagnosis (1) Hypoxemia: Status: Acute (2) COVID-19: Status: Acute (3) Essential hypertension: Status: Acute (4) Chronic episodic atrial fibrillation: Status: Chronic (5) Pacemaker: Status: Acute Reason for Visit Reason for Visit: Possible Covid, Alzheimers Hospital Course Hospital Course History as per HPI: History taken by son over the phone. Eli Bustillo is a 80 year old female with PMH of advanced dementia, HTN, chronic afib on pradaxa, HLD, COPD, CAD presented to ER with daughter in law because of increased weakness and lethargy which has been increasing for last 4 to 5 days.? As per the son she was exposed to Covid by one of her grandson in last 1 week and she started feeling worse for last 4 days.? She has not experienced any difficulty in breathing.? Patient at baseline is extremely confused and has been getting worse over last 2 years. Blood work in the ER showed a white count 5.3, hemoglobin of 12.5, sodium 139, creatinine of 0.6, AST/ALT of 22/13, baseline troponin of 65, TSH of 1.99, pro-Dao of 0.04, UA negative for any sign of infection.? Chest x-ray was done. On admission patient was requiring 2 L of oxygen supplementation to maintain saturation at 97.? Patient was confused, in no acute distress and hemodynamically stable. Hospital course: Patient admitted to the hospital further evaluation and management of hypoxia secondary COVID-19 pneumonia. She started on treatment with dexamethasone, inhalation treatment. Remdesivir was also ordered but family declined transfer was not given. Patientcame back to her baseline mentation. At baseline patient is confused and forgetful. Patient has not been requiring any oxygen overnight. Home O2 evaluation was done. Given advanced age, advanced dementia medications were discussed in detail with the son. We discussed unfortunately given her age and possible recurrent falls patient is at a higher risk of bleeding stroke now as compared to thromboembolic stroke secondary to A. fib. Son verbalized understanding and states they have been taking want to take her off Pradaxa for quite some time. Pradaxa has been stopped. She has been discharged hemodynamically stable condition. Advised to take inhalation treatment with Advair and Spiriva daily. Advised to continue working with incentive spirometry and flutter valve while at home. Advised to continue taking dexamethasone 6 mg for next 10 days. Advised to follow-up with his primary care provider within the next 4 to 7 days. Can take his COVID-19 vaccination in 3 months. Advised to continue following social distancing and isolation protocol for next 10 days. Advised to come back to the ER if fever of more than 101 Fahrenheit, more difficulty breathing than usual or requiring higher oxygen supplementation. Physical Exam Narrative: General: No acute distress,AAOx1, confused HEENT: PERRLA, pupils bilaterally equal and reactive Chest: Normal vesicular breath sounds, no added sounds, equal good air entry bilaterally CVS: S1-S2 irregulaly irregular, no murmurs, no tachycardia, no gallops, no rubs Abdomen: Soft, nontender, no organomegaly, bowel sounds present Neuro: No focal deficits, no facial deformity, AO x3, power 5/5 in all limbs Discharge Data Studies Completed and Pending Completed Studies During Hospitalization Category Date Time Status CT head wo con* [id number] Urgent Cat Scan 04/05/21 14:50 Completed XR chest 1V portable [id number] Urgent Exams 04/05/21 14:27 Completed Pending at discharge Category Date Time Status XR chest 1V portable [id number] Q48H Exams 04/06/21 18:15 Ordered XR chest 1V portable [id number] Q48H Exams 04/08/21 18:15 Ordered Arterial Blood Gas W/O Coox Stat Lab 04/05/21 16:25 Received Bacterial Antigen Stat Lab 04/05/21 Ordered Blood Culture Stat Lab 04/05/21 21:04 Results C Reactive Protein Q48H Lab 04/08/21 04:00 Ordered D Dimer Q48H Lab 04/08/21 04:00 Ordered Ferritin Q48H Lab 04/06/21 18:15 Ordered Ferritin Q48H Lab 04/08/21 18:15 Ordered MRSA by PCR Stat Lab 04/05/21 19:06 Received NT Pro B Type Natriuretic Pept Q48H Lab 04/06/21 18:15 Ordered NT Pro B Type Natriuretic Pept Q48H Lab 04/08/21 18:15 Ordered Procalcitonin Q48H Lab 04/06/21 18:15 Ordered Procalcitonin Q48H Lab 04/08/21 18:15 Ordered Sputum Culture and Gram Stain Stat Lab 04/05/21 18:17 Uncollected CV. echo complete* [id number] Routine Ultrasound 04/06/21 18:17 Taken Radiology Impressions Chest X-Ray 04/05/21 14:27 IMPRESSION: No acute chest abnormality. Head CT 04/05/21 14:50 IMPRESSION: 1. No acute intracranial hemorrhage or edema. 2. Mild atrophy and chronic microvascular ischemic disease. No acute findings. Laboratory Results WBC 2.4 10^3/uL (4.0-10.0) L 04/06/21 03:00 RBC 4.05 10^6/uL (4.1-5.3) L 04/06/21 03:00 Hgb 11.9 g/dL (11.5-15.3) 04/06/21 03:00 Hct 36.8 % (37.0-47.0) L 04/06/21 03:00 MCV 90.9 fl (81-99) 04/06/21 03:00 MCH 29.4 pg (28.0-34.0) 04/06/21 03:00 MCHC 32.3 g/dL (30.0-36.0) 04/06/21 03:00 RDW 12.6 % (12.1-15.1) 04/06/21 03:00 Plt Count 108 10^3/cmm (130-400) L 04/06/21 03:00 MPV 11.6 fL (7.4-10.4) H 04/06/21 03:00 Neut % (Auto) 44.1 % 04/06/21 03:00 Lymph % (Auto) 51.3 % 04/06/21 03:00 [place] % (Auto) 4.2 % 04/06/21 03:00 Eos % (Auto) 0.0 % 04/06/21 03:00 Baso % (Auto) 0.0 % 04/06/21 03:00 Neut # (Auto) 1.04 10^3/uL (1.8-7.7) L 04/06/21 03:00 Lymph # (Auto) 1.2 10^3/uL (0.8-4.8) 04/06/21 03:00 [place] # (Auto) 0.1 10^3/uL (0.2-0.9) L 04/06/21 03:00 Eos # (Auto) 0.0 10^3/uL (0.0-0.8) 04/06/21 03:00 Baso # (Auto) 0.0 10^3/uL (0.0-0.1) 04/06/21 03:00 Nucleated RBC % (auto) 0 % 04/06/21 03:00 Nucleated RBCs # 0.0 /100WBC 04/06/21 03:00 D-Dimer 0.57 ug/mIFEU (0-0.59) 04/06/21 03:00 Sodium 140 mmol/L (136-145) 04/06/21 03:00 Potassium 3.8 mmol/L (3.5-5.1) 04/06/21 03:00 Chloride 108 mmol/L (98-107) H 04/06/21 03:00 Carbon Dioxide 24 mmol/L (22-29) 04/06/21 03:00 Anion Gap 11.8 (5-19) 04/06/21 03:00 BUN 15 mg/dL (8-23) 04/06/21 03:00 Creatinine 0.4 mg/dL (0.5-0.9) L 04/06/21 03:00 GFR Calculation Not Reportable 04/06/21 03:00 Glucose 145 mg/dL (65-115) H 04/06/21 03:00 POC Glucose 118 mg/dL (70-110) H 04/05/21 21:34 Calculated Osmolality 293 mOsm/kg (285-295) 04/06/21 03:00 Calcium 8.9 mg/dL (8.5-10.5) 04/06/21 03:00 Iron 34 ug/dL (37-145) L 04/05/21 14:50 TIBC 226 mcg/dl 04/05/21 14:50 % Saturation 15.0 % (20-50) L 04/05/21 14:50 Unsat Iron Binding 192 ug/dL (112-347) 04/05/21 14:50 Total Bilirubin 0.5 mg/dL (0.15-1.2) 04/06/21 03:00 AST 20 U/L (0-32) 04/06/21 03:00 ALT 12 U/L (0-33) 04/06/21 03:00 Alkaline Phosphatase 74 IU/L (35-105) 04/06/21 03:00 Lactate Dehydrogenase 284 U/L (135-214) H 04/05/21 14:50 Creatine Kinase 86 U/L (26-192) 04/05/21 14:50 Troponin T Baseline 65 ng/L (0-10) H 04/05/21 14:50 Troponin T 120 Minute 56.62 ng/L (0-10) H 04/05/21 16:21 Delta Troponin T -8.38 ABS# (0-10) L 04/05/21 16:21 Troponin T Hi Sens 6Hr 59.51 ng/L (0-10) H 04/05/21 21:00 Troponin T Hi Sens 6Hr Delta -5.49 ng/L (0-12) L 04/05/21 21:00 C-Reactive Protein 3.0 mg/L (0.0-4.9) 04/06/21 03:00 NT-Pro-B Natriuret Pep 267 pg/mL (0-450) 04/05/21 14:50 Total Protein 6.3 g/dL (6.6-8.7) L 04/06/21 03:00 Albumin 3.3 g/dL (3.5-5.2) L 04/06/21 03:00 Globulin 3.0 g/dL (1.3-4.6) 04/06/21 03:00 Procalcitonin 0.04 ng/mL (0-0.5) 04/05/21 14:50 TSH 1.99 uIU/mL (0.27-4.20) 04/05/21 14:50 Urine Color Yellow (Yellow) 04/05/21 15:44 Urine Appearance Clear (CLEAR) 04/05/21 15:44 Urine pH 5 (5-7) 04/05/21 15:44 Ur Specific [place] 1.015 (1.005-1.030) 04/05/21 15:44 Urine Protein Neg (Negative) 04/05/21 15:44 Urine Glucose (UA) Norm (Normal) 04/05/21 15:44 Urine Ketones Negative (Negative) 04/05/21 15:44 Urine Blood Neg (Negative) 04/05/21 15:44 Urine Nitrate Negative (Negative) 04/05/21 15:44 Urine Bilirubin Neg (Negative) 04/05/21 15:44 Urine Urobilinogen 1 mg/dL (Negative) H 04/05/21 15:44 Ur Leukocyte Esterase Negative (Negative) 04/05/21 15:44 Ur Random Sodium 50 mmol/L 04/05/21 15:44 Ur Random Potassium 57 mmol/L 04/05/21 15:44 Ur Random Chloride 57 mmol/L 04/05/21 15:44 Coronavirus 229E (PCR) Not detected (NOT DETECT) 04/05/21 15:40 Influenza Type A Ag Negative (Negative) 04/05/21 15:33 Influenza Type B Ag Negative (Negative) 04/05/21 15:33 SARS-CoV-2 (PCR) Detected (NOT DETECT) A 04/05/21 15:40 Vitals Last Vital Signs Temp 97.6 F 04/06/21 07:47 Pulse 60 04/06/21 08:03 Resp 18 04/06/21 08:03 BP 182/92 04/06/21 07:47 Pulse Ox 97 04/06/21 08:03 Discharge Plan Discharge Patient Disposition: Home Condition: Stable Prescriptions: New amlodipine 5 mg Tablet 5 mg PO DAILY Qty: 30 0RF benzonatate 100 mg Capsule 100 mg PO TID PRN (Reason: cough) Qty: 10 0RF zinc gluconate 50 mg Tablet 50 mg PO DAILY Qty: 14 0RF Advair Diskus 250-50 mcg/dose blister with device 1 inh inhalation BID Qty: 28 0RF Spiriva with HandiHaler 18 mcg capsule, w/inhalation device 1 cap inhalation DAILY Qty: 14 0RF Rx Instructions: puncture 1 cap using device; one dose = 2 inhalations dexamethasone 6 mg tablet 6 mg PO DAILY Qty: 7 0RF ferrous gluconate 324 mg (37.5 mg iron) Tablet 324 mg PO BIDWM Qty: 60 0RF Continued furosemide 20 mg tablet 20 mg PO DAILY 0RF loratadine [Claritin] 10 mg tablet 10 mg PO DAILY 0RF memantine [Namenda] 10 mg tablet 10 mg PO BID 0RF sennosides-docusate sodium [Lax Stool Softener With Senna] 8.6-50 mg tablet 1 tab-cap PO BID 0RF polyethylene glycol 3350 [Miralax] 17 gram/dose powder 17 gm PO DAILY 0RF simvastatin 40 mg tablet 40 mg PO DAILY Qty: 90 1RF citalopram 40 mg tablet 40 mg PO DAILY 0RF Emergen-C 1,000 mg Powder Effervescent In Packet 1 ea PO DAILY 0RF Discontinued Pradaxa 150 mg capsule 150 mg PO BID Qty: 180 2RF Discharge Orders: Discharge Order (Routine); Ordered 04/06/21 Ordered By: Reggie Cortez Referrals: Long Han CPNP [Primary Care Provider] - 7-10 days Discharge Diet: Usual diet Discharge Activity: Resume usual activity and Increase activity as tolerated Patient Instructions: Opioid Safety Activity Restrictions/Additional Instructions: Advised to take inhalation treatment with Advair and Spiriva daily. Advised to continue working with incentive spirometry and flutter valve while at home. Advised to continue taking dexamethasone 6 mg for next 7 days. Advised to follow-up with his primary care provider and his supervisor white sugar within the next 4 to 7 days. Can take his COVID-19 vaccination in 3 months. Advised to continue following social distancing and isolation protocol for next 10 days. Advised to come back to the ER if fever of more than 101 Fahrenheit, more difficulty breathing than usual or requiring higher oxygen supplementation. After discussion with the family Pradaxa has been stopped. Discharge Attestations Time Spent in Discharge Care*: greater than 30 min Specific Discharge Activities: educating and/or supporting family/caregiver, discussing with nurse outreach case manager/social workers/dc planners, documenting/other paperwork and evaluating patient/reviewing data Status at Discharge: Cognitive status at discharge: severely impaired cognition, Behavioral status at discharge: cooperative, Functional status at discharge: other assisted ambulation, Overall status at discharge: patient is back to baseline Quality Metrics Clinical Quality Measures [ No reported AMI, CVA or VTE this stay] Coding Level of Care Code Acute Chg FW DC note History Detailed Exam Detailed Medical Decision Making High Complexity Diagnoses Hypoxemia R09.02 COVID-19 U07.1 Essential hypertension I10 Chronic episodic atrial fibrillation I48.20 Pacemaker Z95.0
[2021-04-06] MEDS: amlodipine 5 mg Tablet PO (13:27)
--- NOTE | 2021-04-06 18:15 | XRR_ITS ---
PROCEDURE INFORMATION: Exam: XR Chest Exam date and time: 04/06/2021 6:15 PM Age: 80 years old Clinical indication: Patient HX: History-- AMS, possible covid, alzheimer's, shortness of breath; Additional info: SOB TECHNIQUE: Imaging protocol: XR of the chest. Views: 1 view. COMPARISON: CR XR chest 1V portable [id number] 04/05/2021 2:51 PM FINDINGS: Tubes, catheters and devices: A left subclavian pacer is again noted. Lungs: A calcified granuloma is again noted in the peripheral right upper lobe. Mild patchy opacity at the lateral left base may reflect atelectasis or developing infiltrate. Pleural spaces: No pleural effusion. No pneumothorax. Heart/Mediastinum: The cardiac silhouette is unchanged. No gross evidence of pneumomediastinum. Diaphragm: Mild elevation of the right hemidiaphragm; unchanged. Bones/joints: No gross fracture. XR/XR chest 1V portable [id number] IMPRESSION: Mild patchy opacity at the lateral left base may reflect atelectasis or developing infiltrate.
--- NOTE | 2021-04-06 18:17 | USCV_ITS ---
Eli Bustillo Age: 80 Gender: F : 1940 Exam Date: 04/06/2021 06:26 Ordering Phys: Reggie Cortez MD Technologist: CRISTINA [place]am [place] [facility] [place]: AFIB, COVID BP: 156 / 93 HR: 59 Rhythm: Sinus Technical Quality: Adequate MEASUREMENTS (Male / Female) Normal Values 2D ECHO LV Diastolic Diameter PLAX 2.3 cm 4.2 - 5.9 / 3.9 - 5.3 cm LV Systolic Diameter PLAX 1.7 cm IVS Diastolic Thickness 1.1 cm 0.6 - 1.0 / 0.6 - 0.9 cm IVS Systolic Thickness 1.2 cm LVPW Diastolic Thickness 1.1 cm 0.6 - 1.0 / 0.6 - 0.9 cm LVPW Systolic Thickness 1.1 cm LVOT Diameter 2.0 cm LV Ejection Fraction 2D Teich 51.4 % LV Ejection Fraction MOD 2C 60.2 % LV Ejection Fraction 2C AL 60.2 % LA Diameter 3.5 cm Aorta at Sinotubular Diameter 2.2 cm M-MODE Aortic Annulus Diameter 2.9 cm LA Ao Ratio MM 1.3 DOPPLER AV Peak Velocity 102.0 cm/s LVOT Peak Velocity 85.0 cm/s AV Area Cont Eq vti 2.6 cm squared AV Area Cont Eq pk 2.7 cm squared MV Area PHT 1.9 cm squared Mitral E to A Ratio 0.6 MV E' Velocity 39.5 cm/s Mitral E to MV E' Ratio 12.6 Mitral E to LV E' Lateral Ratio 15.2 Mitral E to LV E' Septal Ratio 10.8 TV Peak E Velocity 50.0 cm/s Right Atrial Pressure 3.0 mmHg PV Peak Velocity 74.0 cm/s RV Acceleration Time 0.1 s RV Ejection Time 0.3 s RV AcT/ET 0.4 FINDINGS Left Ventricle Normal LV systolic size. LV systolic function is normal with EF of 55 to 60%. Regional wall motion abnormalities cannot be assessed because of poor visualization. Grade 1 diastolic dysfunction is noted. Right Ventricle Not well-visualized Right Atrium Not well-visualized Left Atrium Not well-visualized Mitral Valve Not well-visualized Aortic Valve Not well-visualized. Mild aortic regurgitation is noted. No significant aortic stenosis Tricuspid Valve Not well-visualized Pulmonic Valve Not well visualized. Trace pulmonic regurgitation Pericardium Normal pericardium without effusion. Aorta Normal ascending aorta dimension. CONCLUSIONS Technically very limited quality echocardiogram because of poor ultrasonic windows. LV systolic function is normal. Grade 1 diastolic dysfunction Valvular structures are not well-visualized. Comparison with prior echocardiogram from 02/13/2017 is not possible because of poor quality images. However LV systolic function has stayed normal. Demario Jean Baptiste MD (Electronically Signed) Final Date: 06 April 2021 16:50 S
--- NOTE | 2021-04-06 19:55 | PC.NURSE ---
Discharge education and paperwork given to patients POA at pick pulling machine tender, all questions were answered at this time. Patient oxygen saturations were about 95 on RA. Medications sent to patients local pharmacy. All patient belongings were accounted for.
[2021-04-06 21:19] LABS: Ferritin 204 ng/mL (15-150); NT Pro B Type Natriuretic Pept 379 pg/mL (0-450); Procalcitonin 0.02 ng/mL (0-0.5)
== END 2021-04-06 19:26 | disposition home or self-care (01) | DRG 177 ==
LOC: ER 18:10 → MEDSURG 18:39
PROVIDERS: Admitting Provider Student in an Organized Health Care Education/Training Program; Emergency Provider Emergency Medicine; PCP Registered Nurse; Visit Provider Student in an Organized Health Care Education/Training Program
DX: U07.1 COVID-19 (principal); J12.82 Pneumonia due to coronavirus disease 2019; I48.20 Chronic atrial fibrillation, unspecified; G30.9 Alzheimer's disease, unspecified; F02.80 Dementia in other diseases classified elsewhere, unspecified severity, without behavioral disturbance, psychotic disturbance, mood disturbance, and anxiety; I25.10 Atherosclerotic heart disease of native coronary artery without angina pectoris; K59.04 Chronic idiopathic constipation; J44.9 Chronic obstructive pulmonary disease, unspecified; I10 Essential (primary) hypertension; E78.2 Mixed hyperlipidemia; Z95.0 Presence of cardiac pacemaker; F17.210 Nicotine dependence, cigarettes, uncomplicated
CPT/HCPCS: 36415; 36416; 36600; 70450; 71045; 80053; 81003; 82436; 82550; 82728; 82803; 82962; 83540; 83550; 83615; 83880; 84133; 84145; 84300; 84443; 84484; 85025; 85378; 86140; 86403; 87040; 87449; 87635; 87641; 87804; 93005; 93306; 94640; 99285; J1100; J3490; J7040; J7626